=== PATIENT | male | born 1965 | race Caucasian/White ===

== ENCOUNTER 2024-05-20 12:42 | Observation (INO) | payer BC ==
[2024-05-20 13:40] VITALS: BMI 35.2
[2024-05-20] MEDS ORDERED: dilTIAZem HCL 125 MG/25 ML - 25 ML VIAL ONE (14:10)
[2024-05-20 14:19] LABS: BASO % 0.5 % (0-2.0); EOS % 1.8 % (0-4.5); HEMATOCRIT 44.8 % (35.4-49); HEMOGLOBIN 15.3 GM/dL (11.7-16.9); LYMPH % 18.7 % (8-40); MCH 28.5 pg (25.7-33.7); MCHC 34.2 g/dl (32.0-35.9); MEAN CELL VOLUME 83.3 fl (80-96); MONO % 12.8 % (3.8-10.2); NEUT % 66.2 % (42.8-82.8); PLATELET COUNT 210 10^3/uL (134-434); RBC 5.38 M/mm3 (4.00-5.60); RDW 13.8 % (11.9-15.9); WHITE BLOOD COUNT 6.2 K/mm3 (4.0-10.0)
[2024-05-20] MEDS: SODIUM CHLORIDE 0.9% 500 ML INFUS.BAG IV ONE (14:22)
[2024-05-20] MEDS: dilTIAZem HCL 50 MG/10 ML - 10 ML VIAL IVPUSH ONE (14:22)
[2024-05-20 14:46] LABS: POTASSIUM 4.5 mmol/L (3.5-5.1)
[2024-05-20 14:48] LABS: CALCIUM 8.8 mg/dL (8.5-10.1)
[2024-05-20 14:49] LABS: ALBUMIN 3.8 g/dl (3.4-5.0); BLOOD UREA NITROGEN 13.7 mg/dL (7-18); MAGNESIUM 2.2 mg/dL (1.8-2.4)
[2024-05-20 14:52] LABS: CREATININE 0.9 mg/dL (0.55-1.3)
[2024-05-20 14:53] LABS: BILIRUBIN,TOTAL 0.5 mg/dL (0.2-1)
[2024-05-20] MEDS ORDERED: dilTIAZem HCL 60 MG TABLET ONE (15:13)
[2024-05-20] MEDS: dilTIAZem HCL 60 MG TABLET PO ONE (16:53)
[2024-05-20] MEDS: dilTIAZem HCL 30 MG TABLET PO SCH (21:22)
[2024-05-20] MEDS: ATORVASTATIN CA 10 MG TABLET (FP) PO SCH (21:22)
[2024-05-20] MEDS ORDERED: dilTIAZem HCL 30 MG TABLET PO SCH (22:00)
[2024-05-21 08:02] LABS: POTASSIUM 4.5 mmol/L (3.5-5.1)
[2024-05-21 08:04] LABS: CALCIUM 8.7 mg/dL (8.5-10.1)
[2024-05-21 08:05] LABS: ALBUMIN 3.7 g/dl (3.4-5.0); BLOOD UREA NITROGEN 13.1 mg/dL (7-18); HEMATOCRIT 42.9 % (35.4-49); HEMOGLOBIN 14.3 GM/dL (11.7-16.9); MAGNESIUM 2.1 mg/dL (1.8-2.4); MCH 28.3 pg (25.7-33.7); MCHC 33.3 g/dl (32.0-35.9); MEAN CELL VOLUME 84.8 fl (80-96); MEAN PLT VOLUME 8.1 fl (7.5-11.1); PLATELET COUNT 210 10^3/uL (134-434); RBC 5.06 M/mm3 (4.00-5.60); RDW 13.5 % (11.9-15.9); WHITE BLOOD COUNT 6.3 K/mm3 (4.0-10.0)
[2024-05-21 08:08] LABS: CREATININE 0.8 mg/dL (0.55-1.3); PHOSPHOROUS 3.5 mg/dL (2.5-4.9)
[2024-05-21 08:09] LABS: BILIRUBIN,TOTAL 0.6 mg/dL (0.2-1); TOT PROT 6.6 g/dl (6.4-8.2)
[2024-05-21] MEDS: ENOXAPARIN NA (PORCINE) 40 MG/0.4 ML DISP.SYRIN SQ SCH (09:05)
[2024-05-21 10:26] VITALS: BP 118/81; PULSE 95; RESP 16; TEMP 98.1
== END 2024-05-21 13:33 | disposition home or self-care (01) ==
LOC: JER 12:42 → JERBED 15:08 → J4W 18:38
PROVIDERS: ADMIT Student in an Organized Health Care Education/Training Program; ATTEND Student in an Organized Health Care Education/Training Program
PROC: 3E033GC Introduction of Other Therapeutic Substance into Peripheral Vein, Percutaneous Approach (ICD-10-PCS; principal; 2024-05-20)
PROC: 3E023GC Introduction of Other Therapeutic Substance into Muscle, Percutaneous Approach (ICD-10-PCS; 2024-05-20)
PROC: 3E0337Z Introduction of Electrolytic and Water Balance Substance into Peripheral Vein, Percutaneous Approach (ICD-10-PCS; 2024-05-20)
DX: I48.92 Unspecified atrial flutter (principal); K50.90 Crohn's disease, unspecified, without complications; E78.5 Hyperlipidemia, unspecified
CPT/HCPCS: 36415; 71046-TC-FY; 80053; 80061; 83735; 84100; 84436; 84439; 84443; 84484; 85025; 85027; 93005; 93010; 99291; G0378